=== PATIENT | female | born 1990 | race Caucasian/White ===

== ENCOUNTER 2025-10-27 14:37 | Outpatient (CLI) | payer OTHER, SELFPAY | END 2025-10-27 14:38 | disposition home or self-care (01) | PROVIDERS: Visit Provider Obstetrics & Gynecology | DX: O20.9 Hemorrhage in early pregnancy, unspecified (principal) | CPT/HCPCS: 84702; 86850; 86900; 86901 ==

== ENCOUNTER 2025-10-29 14:57 | Outpatient (CLI) | payer OTHER, SELFPAY | END 2025-10-29 14:58 | disposition home or self-care (01) | LOC: NFLDREF 11-03 04:59 | PROVIDERS: Visit Provider Obstetrics & Gynecology | DX: O20.9 Hemorrhage in early pregnancy, unspecified (principal) | CPT/HCPCS: 84702 ==

== ENCOUNTER 2025-11-01 09:48 | Outpatient (CLI) | payer OTHER, SELFPAY ==
--- NOTE | 2025-11-01 10:00 | CRLHL7_ITS ---
For Patients: As a result of the Century Cures Act, medical imaging exams and procedure reports are released immediately into your electronic medical record. You may view this report before your referring provider. If you have questions, please contact your health care provider. OBSTETRICAL ULTRASOUND TRANSVAGINAL CLINICAL INDICATION: Spotting, viability. LMP: 09/10/2025 ISAIAH by LMP: 06/07/2026 Gestational age: 7 weeks 3 days PREVIOUS ULTRASOUND: No TECHNIQUE: Real-time simms-scale imaging of the fetus was performed transvaginal. Transvaginal imaging was performed for better visualization of the endometrium and ovaries. FINDINGS: CRL: 0.5 cm, 3 weeks 1 day; ISAIAH 06/26/2026 heart rate: 119 BPM Gestational sac: 1.1 cm, less than 10% Yolk sac: 2.9 mm, appears within normal limits Right ovary: Within normal limits; 3.9 x 1.8 x 2.5 cm, CL Left ovary: Not visualized IMPRESSION: 1. Single living intrauterine measures 6 weeks 1 day with sonographic due date of 06/26/2026. 2. heart rate 119 beats per minute. 3. Corpus luteal cyst of right ovary measures 1.6 x 1.4 x 1.7 cm. MICHAEL MAZA M.D. Diagnostic Radiologist [email or web address] Transcribed: 10:[address]/Dictated by: Michael Maza MD @ 11/01/2025 10:53:00 AM (Electronically Signed)
== END 2025-11-01 09:49 | disposition home or self-care (01) ==
PROVIDERS: Visit Provider Obstetrics & Gynecology
DX: O36.80X0 Pregnancy with inconclusive fetal viability, not applicable or unspecified (principal); O20.9 Hemorrhage in early pregnancy, unspecified; O34.81 Maternal care for other abnormalities of pelvic organs, first trimester; N83.11 Corpus luteum cyst of right ovary; Z3A.01 Less than 8 weeks gestation of pregnancy; O02.89 Other abnormal products of conception
CPT/HCPCS: 76817

== ENCOUNTER 2025-11-09 09:57 | Outpatient (CLI) | payer OTHER, SELFPAY ==
--- NOTE | 2025-11-09 10:15 | CRLHL7_ITS ---
For Patients: As a result of the Century Cures Act, medical imaging exams and procedure reports are released immediately into your electronic medical record. You may view this report before your referring provider. If you have questions, please contact your health care provider. OB ULTRASOUND FIRST TRIMESTER INDICATION: Follow-up viability. TECHNIQUE: Real time simms scale imaging of the fetus was performed. Transvaginal. LMP: 09/10/2025. ISAIAH by LMP: 06/17/2026. GA: 8 w, 4 d. Previous US: Yes 11/01/2025. ISAIAH by US: 06/26/2026. CRL: 0.5 cm. 6 w 1 d. ISAIAH: 07/04/2026. FHR: NA BPM. Gestational sac: 1.5 cm. Yolk sac: 5.9 mm. Right ovary: Within normal limits. 3.3 x 2.0 x 2.2 cm. CL. Left ovary: Within normal limits. 3.3 x 2.0 x 2.2 cm. IMPRESSION: Intrauterine gestational sac measures 1.5 cm. pole measures 4.5 mm, decreased in size from the prior study and measures 6 weeks 1 day. Yolk sac is upper limits of normal and measures 5.9 mm. No heart tones. No ectopic. No subchorionic hemorrhage. Findings are compatible with nonviable intrauterine gestation. Michael Ivan M.D. Diagnostic Radiologist [email or web address] LUIS/khoa JR/Dictated by: Michael Ivan MD @ 11/09/2025 11:11:00 AM (Electronically Signed)
== END 2025-11-09 09:58 | disposition home or self-care (01) ==
LOC: US 09:58
PROVIDERS: Visit Provider Registered Nurse
DX: O02.1 Missed abortion (principal)
CPT/HCPCS: 01965; 76817; A9270; J0665; J1885; J2003; J2250; J3010; J3490; J7050; J7120

== ENCOUNTER 2025-11-09 14:45 | Day surgery (SDC) | payer OTHER, SELFPAY ==
[2025-11-09] MEDS: DOXYCYCLINE HYCLATE 200 MG in 0.9 % SODIUM CHLORIDE 250 ml 250 ML 250 MG IVPB (14:57)
[2025-11-09 15:03] VITALS: BMI 37.3
[2025-11-09 15:05] VITALS: BP 113/80; PULSE 58; RESP 20; TEMP 37.4; O2SAT 97
[2025-11-09] MEDS: LACTATED RINGERS 1000 ML 1,000 ML 100 ML IV (15:15)
[2025-11-09] MEDS: SODIUM CHLORIDE 0.9 % (FLUSH) 10 ML SYRINGE IVF (15:15)
[2025-11-09] MEDS: BUPIVACAINE 0.25% 30 ML INJECTION (16:30)
[2025-11-09] MEDS: LIDOCAINE 1 % PF 30 ML INJECTION (16:30)
[2025-11-09] MEDS: SILVER NITRATE APPLICATOR 1 EACH STICK..EA. TOPICAL (16:40)
--- NOTE | 2025-11-09 16:50 | P.GYNPRC_ITS ---
Procedure Note Date of procedure: 11/09/25 Will [facility] bill your pro fee for this procedure?: Yes Pre-op diagnosis: MIssed Post-op diagnosis: Missed Procedure: Suction curettage Anesthesia: MAC and local (Paracervical block) Complications: None Surgeon: Letty Sandoval MD Estimated blood loss (mL): 10 Urine Output (mL): 200 Pathology: specimen obtained, sent to pathology (Products of conception) Condition: stable Disposition: same day Findings: Small to moderate amount of products of conception removed from the uterus. Procedure Description: INDICATIONS: The patient is a 35-year-old 7 para 2041 who [facility] for bleeding in the first trimester. Estimated gestational age by LMP should have been 7 weeks 3 days. Ultrasound demonstrated a single living intrauterine gestation measuring 6 weeks 1 day with a heart rate of 119 beats per minute. She had a follow-up ultrasound on 11/09/2025 at which time there was noted to be no interim growth, and heart motion was absent. She was seen for consultation and chose to proceed with surgical management of the nonviable . PROCEDURE NOTE: After obtaining informed consent, the patient was taken to the operating room where she received monitored anesthesia care. She was prepared and draped in the normal, sterile fashion in the dorsal lithotomy position. Two hundred mg of IV doxycycline was administered intravenously. An examination was performed under anesthesia which demonstrated a normal sized anteverted uterus. An open-sided bivalve speculum was placed into the vagina and the cervix easily visualized. The anterior lip of the cervix was grasped with a single-tooth tenaculum for traction. A paracervical block was administered using a total of 20 mL of a 50:50 mixture of 1% lidocaine and 0.25% Marcaine, plain. A sound was gently inserted through the cervical os into the uterus to the level of the fundus. Sound length was 10 cm. The cervix was gently dilated using Hegar dilators to a # eight dilator. An 8 mm rigid, curved suction cannula was advanced through the cervical os into the uterine cavity. Gentle suction was applied, and the uterine lining gently curetted. A small to moderate amount of products of conception and blood was removed. The suction cannula was removed. The uterine lining was gently explored using a sharp curette, and a gritty feel was felt throughout. One final pass was made with the suction cannula, no further tissue was recovered. The tenaculum was removed. There was some bleeding noted from the tenaculum site which did not resolve with direct pressure or silver nitrate administration. Electrocautery was used hemostasis obtained. All instruments were then removed. The patient tolerated the procedure well. Sponge, lap, and needle counts were reported as correct x2. The patient was taken to the recovery room awake and in stable condition. PATHOLOGY SPECIMEN(S): Products of conception.
[2025-11-09 16:51] VITALS: BP 92/51; PULSE 57; RESP 20; O2SAT 94
[2025-11-09 16:54] VITALS: BP 93/54; PULSE 57; RESP 20; O2SAT 95
--- NOTE | 2025-11-09 17:08 | P.ANES_ITS ---
Anesthesia Charges Start Date/Time Anesthesia Start Date: 11/09/25 Anesthesia Start Time: 16:09 Stop Date/Time Anesthesia Stop Date: 11/09/25 Anesthesia Stop Time: 16:53 Coding CPT Codes CPT Codes: ANESTH INC/MISSED AB PROC - [id number] ([id number]) P2 - PATIENT W/MILD SYST DISEASE, QZ - UTILIZATION SUPERVISOR SVC W/O DIRECTOR OF FINANCIAL REPORTING BY
--- NOTE | 2025-11-09 17:08 | W.ANESCHARGE ---
Anesthesia Charges Start Date/Time Anesthesia Start Date: 11/09/25 Anesthesia Start Time: 16:09 Stop Date/Time Anesthesia Stop Date: 11/09/25 Anesthesia Stop Time: 16:53 Coding CPT Codes CPT Codes: ANESTH INC/MISSED AB PROC - [id number] ([id number]) P2 - PATIENT W/MILD SYST DISEASE, QZ - PASTRY BAKER SVC W/O PRACTICE LEAD BY
[2025-11-09 17:15] VITALS: BP 103/66; PULSE 55; RESP 16; TEMP 36.3; O2SAT 100
--- NOTE | 2025-11-09 18:05 | PC.NURSE ---
Discharge Note: Patient barely arrived from PACU and was requesting to go home. She tolerated liquids. No complaints of nausea or pain noted. We went over her discharge instructions and she had no questions. She did request a hygiene pad as she states she did have a small amount of blood but did not void. was with her and present for when we went over discharge instructions. She ambulated to the car without difficulty.
== END 2025-11-09 18:01 | disposition home or self-care (01) ==
LOC: OR 16:59 → MEDSURG 17:01
PROVIDERS: Visit Provider Obstetrics & Gynecology
PROC: (CPT 59820; principal; 2025-11-09 16:00)
DX: O02.1 Missed abortion (principal)
CPT/HCPCS: 59820; 01965; A9270; J0665; J1885; J2003; J2250; J3010; J3490; J7050; J7120